=== PATIENT | female | born 1940 | race Caucasian/White ===

== ENCOUNTER 2020-02-07 13:31 | Outpatient (REF) | payer SELFPAY | END 2020-02-07 13:32 | disposition home or self-care (01) | LOC: HO.HAP 13:31 | PROVIDERS: Visit Provider Internal Medicine | DX: Z46.1 Encounter for fitting and adjustment of hearing aid (principal) | CPT/HCPCS: 99499 ==

== ENCOUNTER 2020-04-04 08:54 | Outpatient (REF) | payer MEDICARE, SELFPAY ==
--- NOTE | 2020-04-06 12:15 | MHC.AU.P13 ---
Adult Audiological Evaluation Date of Visit: 04/04/20 Appointment Coordinator Used: Not Applicable Reason for Appointment: Audiologic re-evaluation due to perceived increase in difficulties understanding speech Previous Hearing Test Results: 03/23/2019 [facility] Moderate dropping to asymmetric high frequency severe to profound sensorineural heaqring loss with the right ear poorer at 8877-8464 Hz. Speech discrimination ability was 88% for both ears. Medical History: Medical History: High Cholesterol Medication List: Simvastatin, Doxylamaine, Gabapentin, Mesalamine, Brimondine Tartrare Eye Drops, Miralax, Multivitamin, Rafael Red, Glucosamine, Calcium, Alendronate, Meloxicam Hearing Instrument History- Right Ear: Manager Trainee: PhonInstabeat Model: IMTO V50-312 Serial Number: [id number] Battery Size: 312 Repair Warranty: 12/20/2018 ORIGINAL WARRANTY Dispensed By: [facility] Date of Fittin12/04/2015 Hearing Instrument History- Left Ear: Manager Trainee: Phonak Model: IMTO V50-312 CANAL Serial Number: [id number] Battery Size: 312 Warranty: 12/20/2018 ORIGINAL WARRANTY Dispensed By: [facility] Date of Fittin12/04/2015 Otoscopy: Right Ear: Unremarkable Left Ear: Unremarkable Tympanometry: Right Ear: Not performed at today's visit Left Ear: Not performed at today's visit Hearing Evaluation: Transducer(s) Used: Insert Earphones Bone Conduction Method: Conventional Audiometry Stimuli Used: Pure Tones Right Ear: Description of Hearing: Moderate dropping to severe sensorineural hearing loss Left Ear: Description of Hearing: Moderate dropping to profound sensorineural hearing loss Speech Recognition Threshold (SRT): Method Used: Monitored Live Voice Stimuli Used: Spondee Words Right Ear: 50 dB HL Left Ear: 50 dB HL Word Discrimination: Method: Recorded Lists Word Lists Used: NU-6 Right Ear: 72% at 90 dB HL Left Ear: 68% at 85 dB HL Most Comfortable Level (MCL): Right Ear: 90 dB HL Left Ear: 85 dB HL QuickSIN: Binaural Score: 19 dB SNR Loss. This score suggests Alea experiences severe difficulty understanding speech with increasing levels of background noise. Comparison: Compared to the most recent evaluation: Hearing is stable. Word discrimination scores have decreased bilaterally. Recommendations: Audiological re-evaluation in one year. Hearing aid(s) reprogrammed with updated test results. Increased the noise features of the hearing aids to try to reduce background noise and enhance speech understanding. Counseled Alea hearing in a noisy environment will always be difficult, but hopefully the programming change will help some. Diagnosis: Primary Diagnosis: H90.3 Bilateral Sensorineural Hearing Loss Services Performed: Comprehensive Audiological Evaluation (CPT 99595) Signature: Provider: Lynnette Walker, SAMANTHA-A
== END 2020-04-04 08:55 | disposition home or self-care (01) ==
LOC: HO.SH 08:54
PROVIDERS: Visit Provider Internal Medicine
DX: H90.3 Sensorineural hearing loss, bilateral (principal)
CPT/HCPCS: 92557

== ENCOUNTER 2020-07-09 11:19 | Outpatient (REF) | payer SELFPAY ==
--- NOTE | 2020-07-09 11:32 | MHC.AU.P13 ---
Hearing Instrument Problem Date of Visit: 07/09/20 Right Ear: Sound Equipment Mechanic: Phonak Model: VIRTO V50-312 Serial Number: [id number] Repair Warranty: 12/20/2018 ORIGINAL WARRANTY Battery Size: 312 Type of Wax Guard: CERUSTOP Dispensed By: [facility] Date of Fittin12/04/2015 Left Ear: Sound Equipment Mechanic: Phonak Model: VIRTO V50-312 CANAL Serial Number: [id number] Repair Warranty: 12/20/2018 ORIGINAL WARRANTY Battery Size: 312 Type of Wax Guard: CERUSTOP Dispensed By: [facility] Date of Fittin12/04/2015 Follow-Up Summary: Patient brought in aids - right not working. Both aids cleaned and wax guards replaced - now amplifying clearly. Recommendations: Recommendations: Hearing instrument follow-up or maintenance as needed. Signature: Provider: SUSAN Marie
== END 2020-07-09 11:20 | disposition home or self-care (01) ==
LOC: HO.HAP 11:19
PROVIDERS: Visit Provider Internal Medicine
DX: Z46.1 Encounter for fitting and adjustment of hearing aid (principal)
CPT/HCPCS: 99499

== ENCOUNTER 2021-02-25 08:17 | Outpatient (REF) | payer MEDICARE, SELFPAY ==
--- NOTE | 2021-02-25 09:33 | MHC.AU.AHA ---
Adult Audiological Evaluation Date of Visit: 02/25/21 Wire Brush Maker Used: Not Applicable Reason for Appointment: Audiologic re-evaluation due to question of change in hearing ability. Alea reports the right hearing aid stopped working for a short period of time, then started working again. She reports trouble understanding speech on the television due to the amount of background noise. Previous testing has indicated severe difficulty understanding speech with increasing levels of background noise. Previous Hearing Test Results: 04/04/2020 Moderate dropping to asymmetric severe to profound sensorineural hearing loss with the right ear being poorer than the left with 72% speech understanding for the right ear at 90 dB HL and 68% for the left ear at 85 dB HL. Medical History: Medical History: High Cholesterol and Colitis Medication List: Simvastatin, Doxylamaine, Gabapentin, Mesalamine, Brimondine Tartrare Eye Drops, Miralx, Multivitamin, Rafael Red, Glucosamine, Calcium, Alendronate, Meloxicam Hearing Instrument History- Right Ear: Ticket Chopper Assembler: PhonVenmo Model: Red-rabbitO V50-312 Serial Number: [id number] Battery Size: 312 Repair Warranty: 12/20/2018 ORIGINAL WARRANTY Dispensed By: [facility] Date of Fittin12/04/2015 Hearing Instrument History- Left Ear: Ticket Chopper Assembler: Phonak Model: Red-rabbitO V50-312 CANAL Serial Number: [id number] Battery Size: 312 Warranty: 12/20/2018 ORIGINAL WARRANTY Dispensed By: [facility] Date of Fittin12/04/2015 Otoscopy: Right Ear: Small amount of non-occluding cerumen Left Ear: Small amount of non-occluding cerumen Tympanometry: Not performed at today's visit as all previous testing has indicated normal middle ear function for both ears. Hearing Evaluation: Transducer(s) Used: Insert Earphones Bone Conduction Method: Conventional Audiometry Stimuli Used: Pure Tones Right Ear: Description of Hearing: Moderately-severe dropping to profound high frequency sensorineural hearing loss. Thresholds at 3904-5269 Hz are 10-15 dB poorer than the left ear. Left Ear: Description of Hearing: Moderate dropping to profound high frequency sensorineural hearing loss. Speech Recognition Threshold (SRT): Method Used: Monitored Live Voice Stimuli Used: Spondee Words Right Ear: 50 dB HL Left Ear: 45 dB HL Word Discrimination: Method: Recorded Lists Word Lists Used: NU-6 Right Ear: 76% at 85 dB HL Left Ear: 72% at 85 dB HL Most Comfortable Level (MCL): Right Ear: 85 dB HL Left Ear: 85 dB HL Comparison: Compared to most recent evaluation: Overall thresholds have decreased 5 dB for both ears with stable speech discrimination ability. Recommendations: Hearing aid maintenance performed today. Hearing aid(s) reprogrammed with updated test results. Also increased the noise reduction feature of hearing aids to try to improve speech understanding when watching television. Audiological re-evaluation in one year. Will send a reminder card. Diagnosis: Primary Diagnosis: H90.3 Bilateral Sensorineural Hearing Loss Services Performed: Comprehensive Audiological Evaluation (CPT 11734) Signature: Provider: Lynnette Walker, CCC-A
== END 2021-02-25 08:18 | disposition home or self-care (01) ==
LOC: HO.SH 08:17
PROVIDERS: Visit Provider Registered Nurse
DX: H90.3 Sensorineural hearing loss, bilateral (principal)
CPT/HCPCS: 92557

== ENCOUNTER 2021-05-13 08:58 | Outpatient (REF) | payer SELFPAY | END 2021-05-13 08:59 | disposition home or self-care (01) | LOC: HO.HAP 08:58 | PROVIDERS: Visit Provider Internal Medicine | DX: Z13.89 Encounter for screening for other disorder (principal) ==

== ENCOUNTER 2021-11-22 10:59 | Outpatient (REF) | payer SELFPAY | END 2021-11-22 11:00 | disposition home or self-care (01) | LOC: HO.HAP 10:59 | PROVIDERS: Visit Provider Internal Medicine | DX: Z46.1 Encounter for fitting and adjustment of hearing aid (principal) | CPT/HCPCS: 92700 ==

== ENCOUNTER 2022-09-12 08:04 | Outpatient (REF) | payer MEDICARE, SELFPAY | END 2022-09-12 08:05 | disposition home or self-care (01) | LOC: HO.SH 08:04 | PROVIDERS: Visit Provider Registered Nurse | DX: Z46.1 Encounter for fitting and adjustment of hearing aid (principal); H90.3 Sensorineural hearing loss, bilateral | CPT/HCPCS: 92557 ==

== ENCOUNTER 2022-09-12 09:15 | Outpatient (REF) | payer SELFPAY ==
--- NOTE | 2022-09-12 12:37 | MHC.AU.MED ---
Medical Clearance for Hearing Instrumentation Date: 09/12/22 Patient Name: Alea Johnson Date of : 1940 Primary Care Provider: Norman Martinez MD We have seen your patient on 09/12/22 and have determined that they are a candidate for amplification (See accompanying report). Specifically, they would benefit from: Hearing aid use in both ears There is a statute that addresses Medical Evaluation Requirements prior to fitting a patient with a hearing aid. According to [place] statute 265 CMR:6.03(1), (a) General. Except as provided in 265 CMR 6.03(1)(b), a spot worker shall not sell a hearing aid unless the prospective user has presented to the spot worker a written statement signed by a licensed physician that states that the patient's hearing loss has been medically evaluated and the patient may be considered a candidate for a hearing aid. The medical evaluation must have taken place within the preceding six months. Please note: Due to the [place] Statute referenced above, we cannot accept a signature other than that of a licensed physician. CIVIL PREPAREDNESS OFFICER and PA signatures cannot be accepted. I am in agreement with the above recommendation. There is no medical contraindication for hearing instrumentation. Physician Signature Date Physician Name (Printed)
--- NOTE | 2022-09-15 13:21 | MHC.AU.HA1 ---
Hearing Aid Evaluation Date of Visit: 09/12/22 Historical Information: Description of Hearing: Moderate sloping to profound sensorineural hearing loss, bilaterally, with right ear slightly worse than left ear Current personal amplification information: Phonak Virto V50-312 ITCs with canal lock fit in November 2015 Summary: Alea reported that recently she has been constantly raising the volume of her hearing aids to hear better. Alea remains active going out to restaurants every month with friends and family, attending oriental orthodox and bible classes, socializing at family gatherings, and working and gardening in her yard. She has been have increasing difficulty hearing in background noise and in groups of people. She is ready to pursue new hearing aids due to the age of her current pair. Alea prefers to stay with the same ITC with canal lock style of hearing aid; however, she is agreeable to changing hearing aid manufacturers to trial the rechargeable hearing aids. Hearing Aid Prescription: Based on the individual?s shared listening needs, communication environments, dexterity, desire for connectivity, and personal preferences, the following prescription for amplification has been made: Right ear: Make, Model, Color: Jillian Evolv AI 2000 ITC-R (with canal lock) Color: [place] Battery Size: Rechargeable Left ear: Left ear prescription to be same as Right Hearing Aid above: Make, Model, Color: Jillian Evolv AI 2000 ITC-R (with canal lock) Color: [place] Battery Size: Rechargeable Plan of Care: Patient wishes to purchase hearing aids as prescribed Action Taken/Action Needed: [place] Impressions Taken without incident. Medical Clearance to be requested from PCP/ENT. Hearing Instrument Fitting to be scheduled when materials arrive Primary Diagnosis: H90.3 Bilateral Sensorineural Hearing Loss Signature: Provider: Joanna Damon, [facility]A
== END 2022-09-12 09:16 | disposition home or self-care (01) ==
LOC: HO.HAP 09:15
PROVIDERS: Visit Provider Internal Medicine
DX: Z13.89 Encounter for screening for other disorder (principal)
CPT/HCPCS: 92590

== ENCOUNTER 2022-11-17 14:53 | Emergency (ER) | payer MEDICARE, SELFPAY ==
--- NOTE | ~2022-11-17 | CT_ITS ---
EXAMINATION: CT HEAD WITHOUT CONTRAST CLINICAL INFORMATION: Weakness COMPARISON: None available. TECHNIQUE: Contiguous axial imaging was performed from the skull base to vertex without intravenous administration of contrast. This CT examination was performed using dose optimization techniques as appropriate, variously including the following: *Automated exposure control *Adjustment of mA and/or kV according to patient size (this includes techniques or standardized protocols for targeted exams where dose is matched to indication/reason for exam; i.e. extremities or head) *Use of iterative reconstruction technique DLP: 545.36 mGy-cm FINDINGS: There is no acute intracranial hemorrhage or evidence of territorial infarction. No abnormal mass effect or midline shift is seen. [place] to white matter differentiation is well preserved. Low-attenuation in the periventricular white matter is consistent with chronic small vessel ischemic disease. The ventricles are within normal limits for age.. There is prominence of the sulci and gyri consistent with age-related involutional change. No extra-axial fluid collections are identified. The calvarium and scalp soft tissues are normal. The middle ear cavity and mastoid air cells are clear. 0.9 cm retention cyst or focal mucosal thickening is seen in the right maxillary sinus. Otherwise the visualized paranasal sinuses are clear. There is evidence of prior bilateral cataract surgery with lens implants in place. CT/CT head/brain wo IV con IMPRESSION: No acute intracranial pathology.
[2022-11-17 14:55] VITALS: BP 126/69; PULSE 75; RESP 15; TEMP 36.8; O2SAT 99; BMI 22.9
--- NOTE | 2022-11-17 15:03 | ED_ITS ---
HPI - General Adult General Chief complaint: Neuro Symptoms/Deficit Stated complaint: Stroke symptoms? Time Seen by Provider: 11/17/22 16:07 Source: patient and family Mode of arrival: ambulatory Limitations: no limitations History of Present Illness HPI narrative: Patient comes to the emergency room accompanied by her [id number]. Patient states that she feels well and does not know why she is here. The ddaozj-su-gox explains that yesterday, the patient was driving from [place] to [place], [place], which usually she does without any difficulty. Patient forgot how to get to her brother's house. Patient is usually able to use GPS, but she forgot how to use it. Patient states that she does not remember much of what happened yesterday. The egxnew-fq-fsb explains that patient has stopped on her way to the brother's house, and a bystander helped her plug in the address and that is how she was able to get to her brother's house yesterday. Patient denies any falls, no recent illnesses, no UTI symptoms. Per family, there is no history of dementia. Patient does not have any motor deficits. Related Data Allergies Allergy/AdvReac Type Severity Reaction Status Date / Time No Known Allergies Allergy Verified 11/17/22 15:06 Review of Systems 2 Review of Systems: Constitutional : No Weight loss, No Fever, No Chills, No Night Sweats, No Fatigue, No Malaise ENT/Mouth : No Hearing loss, No Ear Pain, No Nasal Congestion, No Sinus Pain, No Hoarseness, No sore throat, No Rhinorrhea, No Swallowing Difficulty Eyes: No Eye Pain, No Swelling, No Redness, No Foreign Body, No Discharge, No Vision Changes Cardiovascular : No Chest Pain, No SOB, No Dyspnea on Exertion, No Orthopnea, No Edema, No Palpitations Respiratory : No Cough, No Sputum, No Wheezing, No Smoke Exposure, No Dyspnea Gastrointestinal : No Nausea, No Vomiting, No Diarrhea, No Constipation, No abdominal Pain, No Hematochezia, No Melena Genitourinary : no irregular bleeding, No Dysuria, No Urinary Frequency, No Hematuria, No Urinary Incontinence, No Urgency, No Flank Pain, No Urinary Flow Changes, No Hesitancy Musculoskeletal : No joint pain, No Myalgias, No Joint Swelling Skin : No Skin Lesions, No rash Neuro : No Weakness, No Numbness, No Paresthesias, No Loss of Consciousness, No Dizziness, No Headache. Patient reports amnesia, 1st time that she cannot remember what happened yesterday. Psych : No Anxiety/Panic, No Depression, No SI/HI/AH/VH, No Social Issues, Heme/Lymph: No Bruising, No Bleeding,No Lymphadenopathy Endocrine : No Polyuria, No Polydipsia, No Temperature Intolerance [facility] Past Medical History Medical History Ulcerative colitis Depression High cholesterol Surgical History Hx of hand surgery Social History Social History Alcohol intake: current Alcohol intake frequency: holidays/special occasions only Alcohol type: beer Smoked in Last 30 Days: No Use of substances other than those prescribed or required for medical reasons: No Advance Directives: No Advance Directives Information Provided: No Physical Exam ED Vital Signs: Vital Signs - 24 hr 11/17/22 14:55 11/17/22 16:09 Temperature 98.2 F 98.1 F Pulse Rate 75 72 Respiratory Rate 15 16 Blood Pressure 126/69 136/87 Pulse Oximetry 99 99 Oxygen Delivery Method Room Air Room Air BMI result Body Mass Index 22.9 Const Other: Appearance: Alert. Oriented X3. No acute distress. Eyes: Pupils equal, round and reactive to light. ENT: Pharynx normal. Neck: Normal inspection. Neck supple. No lymph nodes noted. No crepitus CVS: Normal heart rate and rhythm. Pulses normal. Normal S1 and S2 Respiratory: No respiratory distress. Breath sounds normal. No Wheezing. No rales Abdomen: Soft and nontender. No rigidity. No distention. Skin: Skin warm and dry. Normal skin color. Normal skin turgor. Extremities: No lower extremity edema. No Lacerations. No Rash Neuro: Oriented X 3. No motor deficit. No sensory deficit. Moving all extremities. No slurred speech. CN 2 through 12 grossly intact Psych: calm, cooperative, normal affect Course Course Course Narrative: This is an RME: Additional HPI, ROS, PE not included below will be deferred to primary provider. This is a 82-year-old female with a hx of hyperlipidemia, presenting to the emergency department with a complaint of confusion. Last known well time was on saturday at 2100. Daughter reports that patient got lost yesterday and was unable to drive to a family members house as she did not remember where it was. She reporting generalized weakness. Pt neurologically intact. Medical Decision Making Medical Decision Making [facility] Narrative: -my interpretation of labs: Unremarkable hematology and chemistry. Urinalysis and CT scan pending -my interpretation of CT scan, no intracranial bleed -my interpretation of labs, urinalysis within normal limits, patient has trace leukocyte esterase, no bacteria, no UTI symptoms. -at this time, patient is asymptomatic. Alert and oriented x3. Discussed with the patient and her zftyun-jf-urk the possibility of getting case management/physical therapy involved if patient needs to start services at home. Patient respectfully declined. Patient states that she feels well. Family lives in the area and they will help keep an eye on the patient. Patient will follow-up with the primary care physician. It is possible that patient may be developing early dementia. Patient family agree that she would be safe going home. Differential Diagnosis Differential Diagnoses: The differential diagnosis associated with the presentation includes (Urinary tract infection, TIA, CVA, dementia) Admission/Observation Consideration of admission/observation: Escalation of care including admission/observation considered (Based on initial presentation, admission was considered.) Lab Data [facility] Lab Attestation statement: I reviewed the patient's lab results. 11/17/22 15:33 11/17/22 15:33 Labs: Lab Results 11/17/22 11/17/22 11/17/22 Range/Units 15:33 15:34 15:54 WBC 5.6 (4.8-10.8) X10*3/uL RBC 4.02 L (4.20-5.50) X10*6/uL Hgb 11.8 L (12.0-16.0) g/dl Hct 36.4 L (37.0-47.0) % MCV 90.5 (80.0-98.0) fL MCH 29.4 (27.0-33.0) pg MCHC 32.4 (31.0-35.0) g/dl RDW 13.0 (11.0-16.0) % Plt Count 217 (160-400) X10*3/uL MPV 9.4 (9.4-12.3) fL Immature Gran % (Auto) 0.2 (0.0-0.4) % Neut % (Auto) 61.4 (45-73) % Lymph % (Auto) 24.7 (20-40) % [place] % (Auto) 9.5 (2-11) % Eos % (Auto) 2.9 (0-4) % Baso % (Auto) 1.3 (0-2) % Lymph # (Auto) 1.4 (1.2-4.9) X10*3/uL [place] # (Auto) 0.5 (0.1-1.2) X10*3/uL Eos # (Auto) 0.2 (0.0-0.4) X10*3/uL Baso # (Auto) 0.1 (0.0-0.2) X10*3/uL Abs Immat Gran (auto) 0.01 (0.00-0.03) X10*3/uL Absolute Neuts (auto) 3.4 (2.0-8.3) x10*3/uL Absolute Nucleated RBC 0.000 (0.0-0.012) X10*3/uL Nucleated RBC % (auto) 0.0 (0.0-0.2) /100WBC Sodium 138 (135-145) mmol/L Potassium 4.0 (3.3-5.1) mmol/L Chloride 106 (96-108) mmol/L Carbon Dioxide 23 (22-29) mmol/L Anion Gap 13 (12-20) BUN 17 H (9-16) mg/dL Creatinine 0.81 (0.5-1.4) mg/dL Estim Creat Clear Calc 35.2 Estimated GFR > 60 POC Glucose 146 H (60-115) mg/dL Random Glucose 149 H (60-115) mg/dL Calcium 9.5 (8.4-10.2) mg/dL Magnesium 2.3 (1.6-2.6) mg/dL Total Bilirubin 0.4 (0.0-1.0) mg/dL Direct Bilirubin 0.1 (0.0-0.5) mg/dL AST 22 (5-31) U/L ALT 14 (0-31) U/L Alkaline Phosphatase 45 (39-117) U/L Troponin I High Sens < 2.7 (<3.5-17.0) ng/L Total Protein 6.5 (6.5-8.0) g/dL Albumin 3.9 (3.5-5.0) g/dL Lipase 29 (8-78) U/L Urine Color Urine Appearance Urine pH (5.0-9.0) Ur Specific [place] (1.005-1.025) Urine Protein (Neg-Trace) mg/dL Urine Glucose (UA) (Negative) mg/dL Urine Ketones (Negative) mg/dL Urine Blood (Negative) Urine Nitrite (Negative) Ur Leukocyte Esterase (Negative) Urine RBC (0-2) /HPF Urine WBC (0-5) /HPF Ur Squamous Epith Cells (0-2) /HPF Urine Bacteria (None Seen) Hyaline Casts (0-2) /LPF 11/17/22 Range/Units 18:16 WBC (4.8-10.8) X10*3/uL RBC (4.20-5.50) X10*6/uL Hgb (12.0-16.0) g/dl Hct (37.0-47.0) % MCV (80.0-98.0) fL MCH (27.0-33.0) pg MCHC (31.0-35.0) g/dl RDW (11.0-16.0) % Plt Count (160-400) X10*3/uL MPV (9.4-12.3) fL Immature Gran % (Auto) (0.0-0.4) % Neut % (Auto) (45-73) % Lymph % (Auto) (20-40) % [place] % (Auto) (2-11) % Eos % (Auto) (0-4) % Baso % (Auto) (0-2) % Lymph # (Auto) (1.2-4.9) X10*3/uL [place] # (Auto) (0.1-1.2) X10*3/uL Eos # (Auto) (0.0-0.4) X10*3/uL Baso # (Auto) (0.0-0.2) X10*3/uL Abs Immat Gran (auto) (0.00-0.03) X10*3/uL Absolute Neuts (auto) (2.0-8.3) x10*3/uL Absolute Nucleated RBC (0.0-0.012) X10*3/uL Nucleated RBC % (auto) (0.0-0.2) /100WBC Sodium (135-145) mmol/L Potassium (3.3-5.1) mmol/L Chloride (96-108) mmol/L Carbon Dioxide (22-29) mmol/L Anion Gap (12-20) BUN (9-16) mg/dL Creatinine (0.5-1.4) mg/dL Estim Creat Clear Calc Estimated GFR POC Glucose (60-115) mg/dL Random Glucose (60-115) mg/dL Calcium (8.4-10.2) mg/dL Magnesium (1.6-2.6) mg/dL Total Bilirubin (0.0-1.0) mg/dL Direct Bilirubin (0.0-0.5) mg/dL AST (5-31) U/L ALT (0-31) U/L Alkaline Phosphatase (39-117) U/L Troponin I High Sens (<3.5-17.0) ng/L Total Protein (6.5-8.0) g/dL Albumin (3.5-5.0) g/dL Lipase (8-78) U/L Urine Color Yellow Urine Appearance Clear Urine pH 6.5 (5.0-9.0) Ur Specific [place] 1.015 (1.005-1.025) Urine Protein Negative (Neg-Trace) mg/dL Urine Glucose (UA) Negative (Negative) mg/dL Urine Ketones Negative (Negative) mg/dL Urine Blood Negative (Negative) Urine Nitrite Negative (Negative) Ur Leukocyte Esterase Trace H (Negative) Urine RBC 0-2 (0-2) /HPF Urine WBC 0-5 (0-5) /HPF Ur Squamous Epith Cells 0-2 (0-2) /HPF Urine Bacteria None Seen (None Seen) Hyaline Casts 0-2 (0-2) /LPF Independent Interpretation I performed an independent interpretation of an: CT Scan Radiology Impression Discussion of test interpretation with radiology: I have reviewed the radiologist's reading. Radiologist Impression: FINDINGS: There is no acute intracranial hemorrhage or evidence of territorial infarction. No abnormal mass effect or midline shift is seen. [place] to white matter differentiation is well preserved. Low-attenuation in the periventricular white matter is consistent with chronic small vessel ischemic disease. The ventricles are within normal limits for age.. There is prominence of the sulci and gyri consistent with age-related involutional change. No extra-axial fluid collections are identified. The calvarium and scalp soft tissues are normal. The middle ear cavity and mastoid air cells are clear. 0.9 cm retention cyst or focal mucosal thickening is seen in the right maxillary sinus. Otherwise the visualized paranasal sinuses are clear. There is evidence of prior bilateral cataract surgery with lens implants in place. CT/CT head/brain wo IV con IMPRESSION: No acute intracranial pathology. Discharge Plan Discharge Clinical Impression: Memory change Patient Disposition: Home, Self-Care Instructions: Transient Global Amnesia (ED) Additional Instructions: Please follow-up with your primary care physician tomorrow. If you have any worsening or new symptoms, please return to the emergency room or call 911
--- NOTE | 2022-11-17 15:07 | ECG_ITS ---
Test Reason : WEAKNESS Blood Pressure : / mmHG Vent. Rate : 069 BPM Atrial Rate : 069 BPM P-R Int : 184 ms QRS Dur : 086 ms QT Int : 396 ms P-R-T Axes : 071 019 064 degrees QTc Int : 424 ms Normal sinus rhythm Normal ECG No previous ECGs available Referred By: Shayla Humphreys Electronically Signed By:HIPOLITO WOOTEN
[2022-11-17 15:38] LABS: MANUAL DIFF FLAG NO
[2022-11-17 15:54] LABS: Alanine Aminotransferase 14 U/L (0-31); Albumin Level 3.9 g/dL (3.5-5.0); Alkaline Phosphatase 45 U/L (39-117); Anion Gap 13 (12-20); Aspartate Amino Transferase 22 U/L (5-31); Bilirubin Direct 0.1 mg/dL (0.0-0.5); Bilirubin Total 0.4 mg/dL (0.0-1.0); Blood Urea Nitrogen 17 mg/dL (9-16); Calcium 9.5 mg/dL (8.4-10.2); Carbon Dioxide 23 mmol/L (22-29); Chloride 106 mmol/L (96-108); Creatinine Clr Calc Pharmacy 35.2; Estimated Glomerular Filt Rate > 60; Glucose Random 149 mg/dL (60-115); Lipase 29 U/L (8-78); Magnesium 2.3 mg/dL (1.6-2.6); Sodium 138 mmol/L (135-145); Total Protein 6.5 g/dL (6.5-8.0)
[2022-11-17 15:59] LABS: Glucose, Whole Blood 146 mg/dL (60-115)
[2022-11-17 15:59] LABS: Basophils Absolute Auto 0.1 X10*3/uL (0.0-0.2); Basophils Percent Auto 1.3 % (0-2); Eosinophils Absolute Auto 0.2 X10*3/uL (0.0-0.4); Eosinophils Percent Auto 2.9 % (0-4); Hematocrit 36.4 % (37.0-47.0); Hemoglobin 11.8 g/dl (12.0-16.0); Imm Gran Abs Auto 0.01 X10*3/uL (0.00-0.03); Imm Gran Pct Auto 0.2 % (0.0-0.4); Lymphocytes Absolute Auto 1.4 X10*3/uL (1.2-4.9); Lymphocytes Percent Auto 24.7 % (20-40); Mean Corpuscular HGB Conc 32.4 g/dl (31.0-35.0); Mean Corpuscular Hemoglobin 29.4 pg (27.0-33.0); Mean Corpuscular Volume 90.5 fL (80.0-98.0); Mean Platelet Volume 9.4 fL (9.4-12.3); Monocytes Absolute Auto 0.5 X10*3/uL (0.1-1.2); Monocytes Percent Auto 9.5 % (2-11); Neutrophils Absolute Auto 3.4 x10*3/uL (2.0-8.3); Neutrophils Percent Auto 61.4 % (45-73); Platelet Count 217 X10*3/uL (160-400); Red Blood Count 4.02 X10*6/uL (4.20-5.50); White Blood Count 5.6 X10*3/uL (4.8-10.8)
[2022-11-17 16:01] LABS: Troponin-I High Sensitivity < 2.7 ng/L (<3.5-17.0)
[2022-11-17 16:09] VITALS: BP 136/87; PULSE 72; RESP 16; TEMP 36.7; O2SAT 99
[2022-11-17 18:24] LABS: Appearance Urine Clear; Color Urine Yellow; Glucose Urine UA Negative (Negative); Leukocyte Esterase Urine Trace (Negative); Nitrite Urine Negative (Negative); PH 6.5 (5.0-9.0); Specific Gravity - Urine 1.015 (1.005-1.025); UMIC TRIGGER UACC YES; Urine Blood Negative (Negative); Urine Ketones Negative (Negative); Urine Protein Negative (Neg-Trace)
[2022-11-17 18:26] LABS: Bacteria Urine None Seen (None Seen); Hyaline Casts Urine 0-2 /LPF (0-2); RBC Urine 0-2 /HPF (0-2); Squamous Epithelial Cell Urine 0-2 /HPF (0-2); WBC Urine 0-5 /HPF (0-5)
--- NOTE | 2022-11-17 20:04 | PC.NURSE ---
Assumed care of pt. Pt daughter outside of room, agitated, demanding to leave due to long stay in ER. Redirected, DC paperwork provided, no further issues.
== END 2022-11-17 20:06 | disposition home or self-care (01) ==
PROVIDERS: Physician Assistant Medical; Emergency Provider Emergency Medicine; PCP Internal Medicine
DX: G31.84 Mild cognitive impairment of uncertain or unknown etiology (principal); R51.9 Headache, unspecified; R53.1 Weakness; Z79.899 Other long term (current) drug therapy
CPT/HCPCS: 36415; 70450; 80048; 80076; 81001; 82947; 83690; 83735; 84484; 85025; 93005; 99284